=== PATIENT | female | born 1950 | race African-American/Black ===

== ENCOUNTER 2021-07-03 12:13 | Outpatient (CLI) | payer MEDICARE ==
[2021-07-03 15:42] VITALS: BP 124/66
== END 2021-07-03 12:14 | disposition home or self-care (01) ==
LOC: MRI 12:13
PROVIDERS: ATTEND Nurse Practitioner Acute Care
DX: R41.89 Other symptoms and signs involving cognitive functions and awareness (principal); I67.89 Other cerebrovascular disease; Z95.0 Presence of cardiac pacemaker
CPT/HCPCS: 70553; 71046; 82565